=== PATIENT | female | born 1985 | race African-American/Black ===

== ENCOUNTER 2020-08-07 11:25 | Emergency (ER) | payer MEDICAID ==
[2020-08-07 12:37] VITALS: BP 132/95
[2020-08-07] MEDS ORDERED: DIPHENHYDRAMINE 25MG CAPSULE PO ONE (12:45)
[2020-08-07] MEDS ORDERED: SODIUM CHLORIDE 0.9% 1,000 ML IV ONE (12:45)
[2020-08-07 12:55] LABS: CLARITY URINE CLEAR (CLEAR); COLOR URINE YELLOW (YELLOW); KETONES URINE TRACE (NEGATIVE); LEUKOCYTE ESTERASE URINE NEGATIVE (NEGATIVE); NITRITE URINE NEGATIVE (NEGATIVE); OCCULT BLOOD URINE NEGATIVE (NEGATIVE); PROTEIN URINE TRACE (NEGATIVE); SPECIFIC GRAVITY URINE 1.021 (1.005-1.030)
[2020-08-07] MEDS ORDERED: DOXY1TAB3 MT (14:29)
[2020-08-07] MEDS ORDERED: PREN1COM16 MT (14:30)
== END 2020-08-07 15:08 | disposition home or self-care (01) ==
LOC: ER 11:25
DX: O21.8 Other vomiting complicating pregnancy (principal); Z3A.01 Less than 8 weeks gestation of pregnancy; Z79.899 Other long term (current) drug therapy
CPT/HCPCS: 36415; 76801; 76817; 81003; 81025; 84702; 96360; 99284; J7030; Q0163